=== PATIENT | male | born 1940 | race Caucasian/White ===

== ENCOUNTER 2023-06-15 16:03 | Outpatient (CLI) | payer MEDICARE, SELFPAY | END 2023-06-15 16:04 | disposition home or self-care (01) | PROVIDERS: PCP Family Medicine; Visit Provider Family Medicine | DX: Z00.00 Encounter for general adult medical examination without abnormal findings (principal); I10 Essential (primary) hypertension; I50.9 Heart failure, unspecified; E87.6 Hypokalemia; D64.9 Anemia, unspecified | CPT/HCPCS: 80076; 82607; 82652; 83735; 83880; 84100 ==

== ENCOUNTER 2023-07-19 15:37 | Outpatient (CLI) | payer MEDICARE, SELFPAY ==
--- NOTE | 2023-07-23 16:40 | ONC.NURNOTE ---
Orders received this afternoon from Dr Boykin for 1 unit of blood adjusto writer operator contacted patient and spoke with daughter Jess Munoz states that due to her work schedule she is not able to transport her father in to clinic until 3 pm option given to have type and cross match day before, may come in after 3pm for lab draw daughter expressed dissatisfaction with multiple trips in to hospital and repeats that she does not have the availability to stay with him during a multiple hour visit, Dr Boykin was advised of daughters work constraints and informed this adjusto writer operator to hold off on scheduling this transfusion and Jess was informed that Dr Boykin's team will be in touch with her father next week and offer some other options to manage his anemia if patient and daughter do decide to go ahead with the blood transfusion, Dr Boykin said to set up per their availability in the next week or two.
== END 2023-07-19 15:38 | disposition home or self-care (01) ==
PROVIDERS: PCP Family Medicine; Visit Provider Family Medicine
DX: I50.9 Heart failure, unspecified (principal); D64.9 Anemia, unspecified; I10 Essential (primary) hypertension; E55.9 Vitamin D deficiency, unspecified
CPT/HCPCS: 82728; 82747; 83540; 83615; 83880; 85045

== ENCOUNTER 2023-07-27 07:59 | Outpatient (RCR) | payer MEDICARE, SELFPAY ==
[2023-07-27 08:43] VITALS: BP 94/61; PULSE 73; RESP 22; TEMP 36.6; O2SAT 97
[2023-07-27] MEDS: FUROSEMIDE 20 MG TABLET PO (09:48)
[2023-07-27 10:05] VITALS: BP 105/63; RESP 14; TEMP 36.5
[2023-07-27 10:23] VITALS: BP 99/62; PULSE 69; RESP 14; TEMP 36.4; O2SAT 100
[2023-07-27] MEDS: SODIUM CHLORIDE 0.9 % (FLUSH) 10 ML SYRINGE IVF (10:30)
[2023-07-27] MEDS: 0.9 % SODIUM CHLORIDE 250 ml IV (10:30)
[2023-07-27 11:08] VITALS: BP 92/49; PULSE 69; RESP 14; TEMP 36.4; O2SAT 100
[2023-07-27 12:08] VITALS: BP 112/72; PULSE 70; RESP 14; TEMP 36.4; O2SAT 100
[2023-07-27 13:19] VITALS: BP 113/62; PULSE 70; RESP 22; TEMP 36.6; O2SAT 97
== END 2024-01-23 23:59 | disposition home or self-care (01) ==
LOC: CCIC 07:59
PROVIDERS: PCP Family Medicine; Referring Provider Family Medicine; Visit Provider Clinical Nurse Specialist
DX: D64.9 Anemia, unspecified (principal); J44.9 Chronic obstructive pulmonary disease, unspecified; I50.9 Heart failure, unspecified
CPT/HCPCS: 36415; 36430; 86850; 86900; 86901; 86922; A9270; J7050; P9016

== ENCOUNTER 2023-08-16 16:32 | Outpatient (CLI) | payer MEDICARE, SELFPAY | END 2023-08-16 16:33 | disposition home or self-care (01) | LOC: LKVREF 16:33 | PROVIDERS: PCP Family Medicine; Visit Provider Family Medicine | DX: I50.9 Heart failure, unspecified (principal) | CPT/HCPCS: 83880 ==

== ENCOUNTER 2023-09-13 16:41 | Outpatient (CLI) | payer MEDICARE, SELFPAY | END 2023-09-13 16:42 | disposition home or self-care (01) | PROVIDERS: PCP Family Medicine; Visit Provider Family Medicine | DX: I10 Essential (primary) hypertension (principal); D64.9 Anemia, unspecified; E87.6 Hypokalemia; E55.9 Vitamin D deficiency, unspecified; I50.9 Heart failure, unspecified; J43.9 Emphysema, unspecified | CPT/HCPCS: 80048; 82728; 83540; 83550; 83880; 85045 ==

== ENCOUNTER 2023-09-21 11:03 | Emergency (ER) | payer MEDICARE, SELFPAY ==
[2023-09-21 11:43] VITALS: BP 95/54; PULSE 80; RESP 20; TEMP 36.7; O2SAT 87
--- NOTE | 2023-09-21 11:52 | ED.BACK ---
HPI - Back Pain/Injury General Time Seen by Provider: 12:00 <Christina Joyce Filed: 09/21/23 16:41> Date Seen: 09/21/23 <Christina Joyce Filed: 09/21/23 16:41> Chief Complaint: Back Injury/Pain <Christina Joyce Filed: 09/21/23 16:41> Stated Complaint: Fell yesterday, back pain, low hemoglobin <Christina Joyce Filed: 09/21/23 16:41> Time Seen by Provider: 09/21/23 11:53 <Christina Joyce Filed: 09/21/23 16:41> Source: patient <Christina Joyce Filed: 09/21/23 16:41> Mode of arrival: wheelchair <Christina Joyce Filed: 09/21/23 16:41> Limitations: no limitations <Christina Joyce Filed: 09/21/23 16:41> History of Present Illness HPI Narrative: Patient presents after a fall onto his mid back last evening. Patient is unsure, but believes he slipped or tripped. He did hit his head, but there was no LOC. Denies any headaches or vision changes. Daughter is concerned that the patient may have low hemoglobin, as his levels have been low in the past. Daughter states the patient has been fatigued, losing weight, and has been sleeping more than normal. He also complains of lightheadedness when attempting to walk, so he has been using a wheelchair to get around. Today, patient complains of right-sided upper abdominal pain and mid back pain. The pain has been present since last night and he has not taken anything for the pain. Denies any urinary changes, hematuria, hematochezia, or hematemesis. Of note, patient received a blood transfusion a few months ago. Patient has a history of CHF and stage IV COPD and is on 2L oxygen at baseline with chronic shortness of breath. He lives with his daughter. No tobacco or alcohol use in years. <Christina Joyce Filed: 09/21/23 16:41> Related Data Home Medications: Home Medications Medication Instructions Recorded Confirmed arformoterol 15 mcg/2 mL solution inhalation 06/15/23 09/13/23 for nebulization budesonide 0.25 mg/2 mL suspension 0.25 mg inhalation 06/15/23 09/13/23 for nebulization calcium carbonate 600 mg calcium 750 mg PO TID 06/15/23 09/13/23 (1,500 mg) tablet carboxymethylcellulose sodium ophthalmic (eye) 06/15/23 09/13/23 [Refresh Tears] dorzolamide 2 %-timolol 0.5 % (PF) 1 drp ophthalmic (eye) QAM 06/15/23 09/13/23 eye drops formoterol fumarate 20 mcg/2 mL inhalation 06/15/23 09/13/23 solution for nebulization ipratropium 0.5 mg-albuterol 3 mg ml inhalation 06/15/23 09/13/23 (2.5 mg base)/3 mL nebulization soln latanoprost 0.005 % eye drops 1 drp ophthalmic (eye) QPM 06/15/23 09/13/23 guaifenesin 1,200 mg tablet, 1,200 mg PO BID 06/16/23 09/13/23 extended release 12 hr (Mucinex) vit C 226 mg-vit E 90 mg-copper cap PO BID 06/16/23 09/13/23 0.8 mg-zinc oxide-lutein 5 mg capsule (PreserVision Lutein) potassium chloride 20 mEq 20 meq PO DAILY 09/13/23 09/13/23 tablet,extended release Previous Rx's Medication Instructions Recorded cholecalciferol (vitamin D3) 75 150 mcg (2 x 75 mcg (3,000 unit)) 07/19/23 mcg (3,000 unit) tablet PO QDAY #180 tabs iron,carbonyl 65 mg-vitamin C 125 1 tab PO BID #120 tabs 07/19/23 mg tablet,delayed release (Vitron-C) bisacodyl 10 mg rectal suppository 10 mg [place] QDAY PRN constipation #12 08/16/23 (Dulcolax (bisacodyl)) ea furosemide 20 mg tablet 20 mg PO QAM #90 tabs 08/16/23 tamsulosin 0.4 mg capsule 0.4 mg PO DAILY #90 caps 08/16/23 metoprolol succinate 25 mg 25 mg PO QDAY #90 tabs 08/17/23 tablet,extended release 24 hr <Christina Freed - Last Filed: 09/21/23 16:41> Allergies/Adverse Reactions: Allergies Allergy/AdvReac Type Severity Reaction Status Date / Time finasteride Allergy Severe Confusion Verified 09/13/23 16:09 <[facility] Filed: 09/21/23 16:41> Review of Systems Status of ROS: Reports: 10 or more systems reviewed and unremarkable except as noted in History and below <Christina Gall Filed: 09/21/23 16:41> Const: Reports: change in weight (decreasing) and fatigue; Denies: fever, chills or night sweats <Christina [employer] Filed: 09/21/23 16:41> Eyes: Denies: change in vision or blurry vision <Christina [employer] Filed: 09/21/23 16:41> ENMT: Denies: neck pain <Christina [employer] Filed: 09/21/23 16:41> Cardio: Reports: lightheadedness, shortness of breath with exertion and shortness of breath when lying down; Denies: chest pain, palpitations, edema or swelling of feet/ankles <Christina Gall Filed: 09/21/23 16:41> Resp: Reports: shortness of breath and wheezing; Denies: cough or pain on inspiration <Christina [employer] Filed: 09/21/23 16:41> GI: Reports: abdominal pain (RUQ); Denies: nausea, vomiting, diarrhea, constipation, painful bowel movements, change in stool character or blood in stool <Christina [employer] Filed: 09/21/23 16:41> : Denies: painful urination, urinary frequency, urinary urgency or blood in urine <Christina [employer] Filed: 09/21/23 16:41> Musculo: Reports: back pain (B/L mid bp) and muscle weakness; Denies: neck pain, extremity pain, joint pain, limited range of motion or muscle cramps <Christina [employer] Filed: 09/21/23 16:41> Integ/Breast: Denies: rash <Christina [employer] Filed: 09/21/23 16:41> Neuro: Reports: behavioral changes (per daughter pt has been delayed with his thoughts) and difficulty communicating thoughts; Denies: headache, numbness in extremities, weakness in extremities, dizziness or confusion <Christina Lour[facility] - Last Filed: 09/21/23 16:41> Endo: Reports: fatigue <Christina Freed - Last Filed: 09/21/23 16:41> Allergy/Immuno: Reports: wheezing <Christina Freed - Last Filed: 09/21/23 16:41> PFSH PFSH Medical History: Medical History BPH associated with nocturia ?N40.1 - Benign prostatic hyperplasia with lower urinary tract symptoms (ICD-10) ?R35.1 - Nocturia (ICD-10) Anemia ?D64.9 - Anemia, unspecified (ICD-10) Hypokalemia ?E87.6 - Hypokalemia (ICD-10) Vitamin D deficiency ?E55.9 - Vitamin D deficiency, unspecified (ICD-10) HTN (hypertension) ?I10 - Essential (primary) hypertension (ICD-10) COPD (chronic obstructive pulmonary disease) with emphysema ?J43.9 - Emphysema, unspecified (ICD-10) Lower extremity edema ?R60.0 - Localized edema (ICD-10) CHF (congestive heart failure) ?I50.9 - Heart failure, unspecified (ICD-10) <Christina Freed - Last Filed: 09/21/23 16:41> Social History: Social History Little interest or pleasure in doing things: not at all Feeling down, depressed, or hopeless: not at all <Christina Lourdes - Last Filed: 09/21/23 16:41> Exam Const: Vital Signs, click to edit/add: Vital Signs - 24 hr 09/21/23 11:43 09/21/23 17:04 09/21/23 17:21 Temperature 98.0 F 97.1 F L 97.4 F L Pulse Rate 87 85 Pulse Rate [Right Pulse Oximeter] 80 Respiratory Rate 20 18 18 Blood Pressure 111/62 116/54 L Blood Pressure [Ri ght Upper Arm] 95/54 L Pulse Oximetry 87 L 98 Oxygen Delivery Me thod Nasal Cannula 09/21/23 17:22 Temperature 97.9 F Pulse Rate 89 Pulse Rate [Right Pulse Oximeter] Respiratory Rate 18 Blood Pressure 114/50 L Blood Pressure [Ri ght Upper Arm] Pulse Oximetry 95 Oxygen Delivery Me thod <Christina Filed: 09/21/23 16:41> Vital Signs, click to edit/add: Vital Signs - 24 hr 09/21/23 11:43 09/21/23 17:04 09/21/23 17:21 Temperature 98.0 F 97.1 F L 97.4 F L Pulse Rate 87 85 Pulse Rate [Right Pulse Oximeter] 80 Respiratory Rate 20 18 18 Blood Pressure 111/62 116/54 L Blood Pressure [Ri ght Upper Arm] 95/54 L Pulse Oximetry 87 L 98 Oxygen Delivery Me thod Nasal Cannula 09/21/23 17:22 Temperature 97.9 F Pulse Rate 89 Pulse Rate [Right Pulse Oximeter] Respiratory Rate 18 Blood Pressure 114/50 L Blood Pressure [Ri ght Upper Arm] Pulse Oximetry 95 Oxygen Delivery Me thod <Andres Johnston DO - Last Filed: 09/21/23 20:20> Documenting provider has reviewed patient's vital signs: yes <Christina Filed: 09/21/23 16:41> Common normals: no apparent distress, oriented x3 and alert <Christina Filed: 09/21/23 16:41> General appearance: cooperative, lethargic and frail appearing <Christina Filed: 09/21/23 16:41> Orientation/consciousness: Yes lethargic <Christina Filed: 09/21/23 16:41> HENMT: Common normals: normocephalic, hearing grossly normal bilaterally, external ears normal, EAC's normal, external nose normal, nasal mucous membranes and turbinates normal, moist oral mucous membranes and oropharynx normal <Christina Filed: 09/21/23 16:41> Head and scalp: normal to inspection and normocephalic <Christina Filed: 09/21/23 16:41> Nose: external nose normal and nasal mucous membranes and turbinates normal <Christina Filed: 09/21/23 16:41> External ear: external ears normal <Christina Filed: 09/21/23 16:41> External auditory canal: EAC's normal <[facility] Filed: 09/21/23 16:41> Eye: Common normals: PERRL, EOMs intact bilaterally and conjunctivae normal <[facility] Filed: 09/21/23 16:41> Conjunctiva: conjunctiva(e) normal <[facility] Filed: 09/21/23 16:41> Pupil: PERRL <[facility] Filed: 09/21/23 16:41> Neck & C-Spine: Common normals: full ROM, no lymphadenopathy, supple, no meningeal signs, no JVD, thyroid normal and no carotid bruits <[facility] Filed: 09/21/23 16:41> Thyroid: thyroid normal <[facility] Filed: 09/21/23 16:41> Chest: Common normals: inspection of chest normal, palpation of chest normal, inspection of breasts normal and palpation of breasts normal <[facility] Filed: 09/21/23 16:41> Resp: Common normals: normal respiratory effort, no retractions, no use of accessory muscles, clear to auscultation bilaterally and percussion normal <[facility] Filed: 09/21/23 16:41> Effort & inspection: able to speak in complete sentences and symmetric chest movement <[facility] Filed: 09/21/23 16:41> Auscultation: clear to auscultation bilaterally and diminished lung sounds <[facility] Filed: 09/21/23 16:41> Percussion: percussion normal <[facility] Filed: 09/21/23 16:41> Cardio: Common normals: no JVD, regular rate, regular rhythm, S1 normal heart sound, S2 normal heart sound, no gallops, no clicks, no murmurs, no rub and peripheral pulses 2+ throughout <[facility] Filed: 09/21/23 16:41> Rate: regular rate <[facility] Filed: 09/21/23 16:41> Rhythm: regular rhythm <[facility] Filed: 09/21/23 16:41> Heart sounds: S1 normal and S2 normal <Christina - Last Filed: 09/21/23 16:41> Peripheral pulses: pulses 2+ throughout <Christina - Last Filed: 09/21/23 16:41> GI: Common normals: Normal to inspection, nondistended, normoactive bowel sounds present, soft to palpation, non-tender, no hepatosplenomegaly and no masses <Christina - Last Filed: 09/21/23 16:41> Palpation: soft and no hepatosplenomegaly <Christina - Last Filed: 09/21/23 16:41> : Common normals: no CVA tenderness <Christina - Last Filed: 09/21/23 16:41> Bladder/kidney exam: no CVA tenderness <Christina - Filed: 09/21/23 16:41> Back & Pelvis: Common normals: no CVA tenderness <Christina - Filed: 09/21/23 16:41> Thoracic spine/upper back: ROM limited, mass present (large mass at mid back) and kyphosis present; no thoracic spinal tenderness, no paraspinal muscle tenderness, no paraspinal muscle spasm and no bony scapula findings <Christina - Filed: 09/21/23 16:41> Lumbar spine/lower back: ROM limited; no lumbar spinal tenderness, no paraspinal muscle tenderness and no paraspinal muscle spasm <Christina - Filed: 09/21/23 16:41> Pelvis: no pain with lateral compression <Christina - Last Filed: 09/21/23 16:41> Sacrum: no erythema, no swelling and no tenderness <Christina - Last Filed: 09/21/23 16:41> Extremity: Common normals: normal to inspection, full ROM, normal capillary refill, no calf tenderness and no pedal edema <Christina - Last Filed: 09/21/23 16:41> Neuro: Common normals: oriented x3 <Christina - Last Filed: 09/21/23 16:41> Sensorium/orientation: alert and lethargic <Christina - Last Filed: 09/21/23 16:41> Meningeal signs: no meningeal signs <Christina Lourdes - Last Filed: 09/21/23 16:41> Psych: Common normals: mental status grossly normal, thought process normal, cooperative, affect normal and activity/motor behavior normal <Christina Freed - Last Filed: 09/21/23 16:41> Speech: slow <Christina Freed Last Filed: 09/21/23 16:41> Thought process: normal thought process <Christina Freed - Filed: 09/21/23 16:41> Skin: Common normals: no rashes or lesions noted <Christina Freed - Filed: 09/21/23 16:41> General skin exam: no rashes or lesions noted <Christina Freed - Filed: 09/21/23 16:41> Course Reevaluation(s) Time of Reevaluation #1: 12:10 <Christina Freed - Filed: 09/21/23 16:41> Reevaluation #1: Patient seen and evaluated by IDALIA Mendenhall <Christina Freed Filed: 09/21/23 16:41> Time of Reevaluation #2: 12:30 <Christina Lourdes - Filed: 09/21/23 16:41> Reevaluation #2: Dr. Johnston was present for history and physical exam performed by student. Family and patient updated on plan. Patient placed on 2L of oxygen and given Neb treatment for his chronic shortness of breath. <Christina Lourdes Filed: 09/21/23 16:41> Time of Reevaluation #3: 15:41 <Christina Lourdes Filed: 09/21/23 16:41> Reevaluation #3: Dr. Johnston updated daughter and patient on lab and imaging results. Discussed the possibility of admission. <Christina Lourdes Last Filed: 09/21/23 16:41> Vital Signs Vital signs: Initial Vital Signs Temperature 98.0 F 09/21/23 11:43 Temperature Source Temporal Artery Scan 09/21/23 11:43 Pulse Rate 80 09/21/23 11:43 Respiratory Rate 20 09/21/23 11:43 Blood Pressure 95/54 L 09/21/23 11:43 Blood Pressure Mean 67 L 09/21/23 11:43 Blood Pressure Position Sitting 09/21/23 11:43 Pulse Oximetry 87 L 09/21/23 11:43 Oxygen Delivery Method Nasal Cannula 09/21/23 11:43 Vital Signs Temperature 98.0 F 09/21/23 11:43 Pulse Rate 80 09/21/23 11:43 Respiratory Rate 20 09/21/23 11:43 Blood Pressure 95/54 L 09/21/23 11:43 Pulse Oximetry 87 L 09/21/23 11:43 Oxygen Delivery Method Nasal Cannula 09/21/23 11:43 Temperature 97.9 F 09/21/23 17:22 Pulse Rate 89 09/21/23 17:22 Respiratory Rate 18 09/21/23 17:22 Blood Pressure 114/50 L 09/21/23 17:22 Pulse Oximetry 95 09/21/23 17:22 Oxygen Delivery Method Nasal Cannula 09/21/23 11:43 <Christina Freed - Last Filed: 09/21/23 16:41> Initial Vital Signs Temperature 98.0 F 09/21/23 11:43 Temperature Source Temporal Artery Scan 09/21/23 11:43 Pulse Rate 80 09/21/23 11:43 Respiratory Rate 20 09/21/23 11:43 Blood Pressure 95/54 L 09/21/23 11:43 Blood Pressure Mean 67 L 09/21/23 11:43 Blood Pressure Position Sitting 09/21/23 11:43 Pulse Oximetry 87 L 09/21/23 11:43 Oxygen Delivery Method Nasal Cannula 09/21/23 11:43 Vital Signs Temperature 98.0 F 09/21/23 11:43 Pulse Rate 80 09/21/23 11:43 Respiratory Rate 20 09/21/23 11:43 Blood Pressure 95/54 L 09/21/23 11:43 Pulse Oximetry 87 L 09/21/23 11:43 Oxygen Delivery Method Nasal Cannula 09/21/23 11:43 Temperature 97.9 F 09/21/23 17:22 Pulse Rate 89 09/21/23 17:22 Respiratory Rate 18 09/21/23 17:22 Blood Pressure 114/50 L 09/21/23 17:22 Pulse Oximetry 95 09/21/23 17:22 Oxygen Delivery Method Nasal Cannula 09/21/23 11:43 <Andres Johnston DO - Last Filed: 09/21/23 20:20> MDM - Back Pain/Injury MDM Narrative Medical decision making narrative: Patient is an 83-year-old male with a pertinent medical history of stage IV COPD who presents to the ED after a fall onto his mid back last evening. Patient is unsure why/how he fell, admits to hitting his head, but denies any LOC. No headaches or vision changes at this time. Patient has history of low hemoglobin at baseline, but has been feeling lightheaded and experiencing unexpected weight loss over the past few days. Today, patient complains of mid back pain and right upper quadrant abdominal pain. On exam, patient is afebrile and hypotensive with a blood pressure of 95/54. He is lethargic and slow to answering questions. Patient is on 2L oxygen at baseline and has an O2 sat of 87. Patient has diminished lung sounds, but is in no acute distress. He has limited thoracic and lumbar ROM at baseline. He is not significantly tender on cervical, thoracic, or lumbar exam. Physical exam is otherwise unremarkable. CT abdomen, cervical spine, head, and chest X-ray ordered to rule out any trauma, fractures, or pulmonary diseases/infections, AAA or aortic dissection. Troponin, Mg, Pro BNP, and EKG ordered to assess any underlying cardiac events. CBC, UA, CMP ordered to rule out anemia, electrolyte abnormalities, or underlying infectious causes. Covid/Flu ordered to assess for viral infections. Patient placed on 2L of oxygen at this time and neb ordered to alleviate his elevated shortness of breath. Patient declined Covid/flu swab and nebulizer treatment. CBC is remarkable for elevated WBC, elevated neutrophils, and low lymphocytes. Patients Hgb decreased from 8.6 to 7.9 (today) over the span of 5 days and is critically low with low RBCs and Hct and is symptomatic with fatigue, lightheadedness, and weakness. Patient would likely benefit from a blood transfusion, subsequent a blood type ordered and patent is A positive. CBC shows low sodium, chloride, and elevated CO2 likely due to the patients stage IV COPD. UA is unremarkable with no nitrites or leukocyte esterase, no underlying urinary tract infection. Pro BNP elevated at 2440 likely due to his history of CHF. Troponin negative. Chest X-ray unremarkable for pneumonia or other pulmonary disease, no clear signs of infection. Cervical spine CT unremarkable for fracture. CT head unremarkable with no intracranial bleeding. CT abdomen shows AAA measuring 4.5 x 5.1 cm that is not leaking; therefore, low suspicion for aortic dissection. 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 Nurse mentioned the patient's stools looked black and tarry, it is likely his low hemoglobin is due to an upper GI bleed or from his carcinoma. Subsequent CT thoracic spine without contrast was ordered to better assess an acute traumatic injury or fracture to T10-T12 vertebrae. No fracture found on CT, but there is mention of age-related degenerative changes at T7 and T8 and kyphosis. Due to patient's stage IV COPD, chronic nasal cannula, and CHF, he is not a good candidate for surgery at this time. <Christina Freed - Last Filed: 09/21/23 16:41> Patient is an 83-year-old male with a pertinent medical history of stage IV COPD who presents to the ED after a fall onto his mid back last evening. Patient is unsure why/how he fell, admits to hitting his head, but denies any LOC. No headaches or vision changes at this time. Patient has history of low hemoglobin at baseline, but has been feeling lightheaded and experiencing unexpected weight loss over the past few days. Today, patient complains of mid back pain and right upper quadrant abdominal pain. On exam, patient is afebrile and hypotensive with a blood pressure of 95/54. He is lethargic and slow to answering questions. Patient is on 2L oxygen at baseline and has an O2 sat of 87. Patient has diminished lung sounds, but is in no acute distress. He has limited thoracic and lumbar ROM at baseline. He is not significantly tender on cervical, thoracic, or lumbar exam. Physical exam is otherwise unremarkable. CT abdomen, cervical spine, head, and chest X-ray ordered to rule out any trauma, fractures, or pulmonary diseases/infections, AAA or aortic dissection. Troponin, Mg, Pro BNP, and EKG ordered to assess any underlying cardiac events. CBC, UA, CMP ordered to rule out anemia, electrolyte abnormalities, or underlying infectious causes. Covid/Flu ordered to assess for viral infections. Patient placed on 2L of oxygen at this time and neb ordered to alleviate his elevated shortness of breath. Patient declined Covid/flu swab and nebulizer treatment. CBC is remarkable for elevated WBC, elevated neutrophils, and low lymphocytes. Patients Hgb decreased from 8.6 to 7.9 (today) over the span of 5 days and is critically low with low RBCs and Hct and is symptomatic with fatigue, lightheadedness, and weakness. Patient would likely benefit from a blood transfusion, subsequent a blood type ordered and patent is A positive. CBC shows low sodium, chloride, and elevated CO2 likely due to the patients stage IV COPD. UA is unremarkable with no nitrites or leukocyte esterase, no underlying urinary tract infection. Pro BNP elevated at 2440 likely due to his history of CHF. Troponin negative. Chest X-ray unremarkable for pneumonia or other pulmonary disease, no clear signs of infection. Cervical spine CT unremarkable for fracture. CT head unremarkable with no intracranial bleeding. CT abdomen shows AAA measuring 4.5 x 5.1 cm that is not leaking; therefore, low suspicion for aortic dissection. 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 Nurse mentioned the patient's stools looked black and tarry, it is likely his low hemoglobin is due to a GI bleed or from his carcinoma. Subsequent CT thoracic spine without contrast was ordered to better assess an acute traumatic injury or fracture to T10-T12 vertebrae. No fracture found on CT, but there is mention of age-related degenerative changes at T7 and T8 and kyphosis. Due to patient's stage IV COPD, chronic nasal cannula, and CHF, he is not a good candidate for surgery at this time. I spoke to Dr. Mendoza and Dr. Rowe about this patient. Both of them think he is a poor candidate for any surgery or procedures to better diagnose his likely GI bleeding. Dr. Rowe did mention hospice planning with this patient. I spoke to him and his daughter and mother consider it they believe he he could be a candid for surgery using a epidural. This would be very high risk procedure especially considering his age according to Dr. Mendoza. He is otherwise and has baseline right now and has been given 1 unit of blood. I had this conversation again about hospice and they would like to be discharged as they did not want to be admitted just for hospice planning. They will follow-up with Colorectal surgery outpatient for this carcinoma. Social service consult was put in for possible or patient hospice planning. <Andres Johnston, - Last Filed: 09/21/23 20:20> Differential Diagnosis Differential diagnosis: Likely lumbar radiculopathy, sciatica, strain of lumbar region, renal colic, pyelonephritis, thoracic back pain and AAA <Christina Freed - Last Filed: 09/21/23 16:41> Medical Records Attestation: I reviewed the patient's medical records. <Christina Freed - Last Filed: 09/21/23 16:41> Lab Data Attestation: I reviewed the patient's lab results. <Christina Freed - Last Filed: 09/21/23 16:41> Labs: Lab Results 09/21/23 09/21/23 09/21/23 Range/Units 12:20 12:53 14:40 WBC 15.05 H (4.50-11.00) K/uL RBC 2.82 L (4.30-5.90) m/uL Hgb 7.9 L* (13.5-17.5) gm/dL Hct 27.4 L (37.0-53.0) % MCV 97 (80-100) fL MCH 28 (26-34) pg MCHC 29 L (32-36) gm/dL RDW Coeff of Karlee 14.3 (11.5-15.5) % Plt Count 172 (140-440) K/uL Neut % (Auto) 78.6 H (42.0-72.0) % Lymph % (Auto) 8.8 L (20-44) % [place] % (Auto) 7.5 (0.0-11.0) % Eos % (Auto) 4.3 (0.0-7.0) % Baso % (Auto) 0.3 (0.0-3.0) % Neut # (Auto) 11.80 H (1.7-7.0) K/uL Lymph # (Auto) 1.30 (0.90-2.90) K/uL [place] # (Auto) 1.10 H (0.00-0.90) K/UL Eos # (Auto) 0.60 H (0.00-0.50) K/uL Baso # (Auto) 0.00 (0.00-0.30) K/uL Abs Immat Gran (auto) 0.10 (0.00-0.30) K/uL Imm/Tot Granulo (auto) 0.5 % Diff Slide Review Acceptable Review (Acceptable) Sodium 130 L (135-149) mmol/L Potassium 4.5 (3.6-5.1) mmol/L Chloride 90 L (96-114) mmol/L Carbon Dioxide 36 H (20-32) mmol/L Anion Gap 4 L (7-15) mEq/L BUN 22 (7-30) mg/dL Creatinine 1.3 (0.5-1.5) mg/dL Estimated GFR 55 ml/min Glucose 113 (60-115) mg/dL Calcium 9.3 (8.4-10.6) mg/dL Magnesium 2.1 (1.5-2.6) mg/dL Total Bilirubin 0.5 (0.1-1.5) mg/dL AST 12 (12-35) U/L ALT 11 (4-50) U/L Alkaline Phosphatase 62 (40-150) U/L Troponin I < 0.01 L (0.01-0.04) ng/mL NT-Pro-B Natriuret Pep 2440 pg/mL Total Protein 5.9 L (6.0-8.3) g/dL Albumin 3.0 L (3.3-5.0) g/dL Urine Color Yellow (Yellow) Urine Appearance Clear (Clear) Urine pH 5.0 (5.0-8.5) Ur Specific [place] 1.010 (1.000-1.030) Urine Protein Negative (Negative) Urine Glucose (UA) Negative (Negative) Urine Ketones Negative (Negative) Urine Blood Negative (Negative) Urine Nitrite Negative (Negative) Urine Bilirubin Negative (Negative) Urine Urobilinogen 0.2 (0.2-1.0) Ur Leukocyte Esterase Negative (Negative) Urine RBC 0-2 (0-2) Urine WBC 0-2 (0-5) Ur Squamous Epith Cells None (None-Few) Urine Bacteria None (None) Lab Acknowledgement Test Added Blood Type Antibody Screen Crossmatch (AHG) 09/21/23 Range/Units 14:45 WBC (4.50-11.00) K/uL RBC (4.30-5.90) m/uL Hgb (13.5-17.5) gm/dL Hct (37.0-53.0) % MCV (80-100) fL MCH (26-34) pg MCHC (32-36) gm/dL RDW Coeff of Karlee (11.5-15.5) % Plt Count (140-440) K/uL Neut % (Auto) (42.0-72.0) % Lymph % (Auto) (20-44) % [place] % (Auto) (0.0-11.0) % Eos % (Auto) (0.0-7.0) % Baso % (Auto) (0.0-3.0) % Neut # (Auto) (1.7-7.0) K/uL Lymph # (Auto) (0.90-2.90) K/uL [place] # (Auto) (0.00-0.90) K/UL Eos # (Auto) (0.00-0.50) K/uL Baso # (Auto) (0.00-0.30) K/uL Abs Immat Gran (auto) (0.00-0.30) K/uL Imm/Tot Granulo (auto) % Diff Slide Review (Acceptable) Sodium (135-149) mmol/L Potassium (3.6-5.1) mmol/L Chloride (96-114) mmol/L Carbon Dioxide (20-32) mmol/L Anion Gap (7-15) mEq/L BUN (7-30) mg/dL Creatinine (0.5-1.5) mg/dL Estimated GFR ml/min Glucose (60-115) mg/dL Calcium (8.4-10.6) mg/dL Magnesium (1.5-2.6) mg/dL Total Bilirubin (0.1-1.5) mg/dL AST (12-35) U/L ALT (4-50) U/L Alkaline Phosphatase (40-150) U/L Troponin I (0.01-0.04) ng/mL NT-Pro-B Natriuret Pep pg/mL Total Protein (6.0-8.3) g/dL Albumin (3.3-5.0) g/dL Urine Color (Yellow) Urine Appearance (Clear) Urine pH (5.0-8.5) Ur Specific [place] (1.000-1.030) Urine Protein (Negative) Urine Glucose (UA) (Negative) Urine Ketones (Negative) Urine Blood (Negative) Urine Nitrite (Negative) Urine Bilirubin (Negative) Urine Urobilinogen (0.2-1.0) Ur Leukocyte Esterase (Negative) Urine RBC (0-2) Urine WBC (0-5) Ur Squamous Epith Cells (None-Few) Urine Bacteria (None) Lab Acknowledgement Blood Type A Positive Antibody Screen NEGATIVE Crossmatch (AHG) See Detail <Christina Freed - Last Filed: 09/21/23 16:41> Lab Results 09/21/23 09/21/23 09/21/23 Range/Units 12:20 12:53 14:40 WBC 15.05 H (4.50-11.00) K/uL RBC 2.82 L (4.30-5.90) m/uL Hgb 7.9 L* (13.5-17.5) gm/dL Hct 27.4 L (37.0-53.0) % MCV 97 (80-100) fL MCH 28 (26-34) pg MCHC 29 L (32-36) gm/dL RDW Coeff of Karlee 14.3 (11.5-15.5) % Plt Count 172 (140-440) K/uL Neut % (Auto) 78.6 H (42.0-72.0) % Lymph % (Auto) 8.8 L (20-44) % [place] % (Auto) 7.5 (0.0-11.0) % Eos % (Auto) 4.3 (0.0-7.0) % Baso % (Auto) 0.3 (0.0-3.0) % Neut # (Auto) 11.80 H (1.7-7.0) K/uL Lymph # (Auto) 1.30 (0.90-2.90) K/uL [place] # (Auto) 1.10 H (0.00-0.90) K/UL Eos # (Auto) 0.60 H (0.00-0.50) K/uL Baso # (Auto) 0.00 (0.00-0.30) K/uL Abs Immat Gran (auto) 0.10 (0.00-0.30) K/uL Imm/Tot Granulo (auto) 0.5 % Diff Slide Review Acceptable Review (Acceptable) Sodium 130 L (135-149) mmol/L Potassium 4.5 (3.6-5.1) mmol/L Chloride 90 L (96-114) mmol/L Carbon Dioxide 36 H (20-32) mmol/L Anion Gap 4 L (7-15) mEq/L BUN 22 (7-30) mg/dL Creatinine 1.3 (0.5-1.5) mg/dL Estimated GFR 55 ml/min Glucose 113 (60-115) mg/dL Calcium 9.3 (8.4-10.6) mg/dL Magnesium 2.1 (1.5-2.6) mg/dL Total Bilirubin 0.5 (0.1-1.5) mg/dL AST 12 (12-35) U/L ALT 11 (4-50) U/L Alkaline Phosphatase 62 (40-150) U/L Troponin I < 0.01 L (0.01-0.04) ng/mL NT-Pro-B Natriuret Pep 2440 pg/mL Total Protein 5.9 L (6.0-8.3) g/dL Albumin 3.0 L (3.3-5.0) g/dL Urine Color Yellow (Yellow) Urine Appearance Clear (Clear) Urine pH 5.0 (5.0-8.5) Ur Specific [place] 1.010 (1.000-1.030) Urine Protein Negative (Negative) Urine Glucose (UA) Negative (Negative) Urine Ketones Negative (Negative) Urine Blood Negative (Negative) Urine Nitrite Negative (Negative) Urine Bilirubin Negative (Negative) Urine Urobilinogen 0.2 (0.2-1.0) Ur Leukocyte Esterase Negative (Negative) Urine RBC 0-2 (0-2) Urine WBC 0-2 (0-5) Ur Squamous Epith Cells None (None-Few) Urine Bacteria None (None) Lab Acknowledgement Test Added Blood Type Antibody Screen Crossmatch (AHG) 09/21/23 Range/Units 14:45 WBC (4.50-11.00) K/uL RBC (4.30-5.90) m/uL Hgb (13.5-17.5) gm/dL Hct (37.0-53.0) % MCV (80-100) fL MCH (26-34) pg MCHC (32-36) gm/dL RDW Coeff of Karlee (11.5-15.5) % Plt Count (140-440) K/uL Neut % (Auto) (42.0-72.0) % Lymph % (Auto) (20-44) % [place] % (Auto) (0.0-11.0) % Eos % (Auto) (0.0-7.0) % Baso % (Auto) (0.0-3.0) % Neut # (Auto) (1.7-7.0) K/uL Lymph # (Auto) (0.90-2.90) K/uL [place] # (Auto) (0.00-0.90) K/UL Eos # (Auto) (0.00-0.50) K/uL Baso # (Auto) (0.00-0.30) K/uL Abs Immat Gran (auto) (0.00-0.30) K/uL Imm/Tot Granulo (auto) % Diff Slide Review (Acceptable) Sodium (135-149) mmol/L Potassium (3.6-5.1) mmol/L Chloride (96-114) mmol/L Carbon Dioxide (20-32) mmol/L Anion Gap (7-15) mEq/L BUN (7-30) mg/dL Creatinine (0.5-1.5) mg/dL Estimated GFR ml/min Glucose (60-115) mg/dL Calcium (8.4-10.6) mg/dL Magnesium (1.5-2.6) mg/dL Total Bilirubin (0.1-1.5) mg/dL AST (12-35) U/L ALT (4-50) U/L Alkaline Phosphatase (40-150) U/L Troponin I (0.01-0.04) ng/mL NT-Pro-B Natriuret Pep pg/mL Total Protein (6.0-8.3) g/dL Albumin (3.3-5.0) g/dL Urine Color (Yellow) Urine Appearance (Clear) Urine pH (5.0-8.5) Ur Specific [place] (1.000-1.030) Urine Protein (Negative) Urine Glucose (UA) (Negative) Urine Ketones (Negative) Urine Blood (Negative) Urine Nitrite (Negative) Urine Bilirubin (Negative) Urine Urobilinogen (0.2-1.0) Ur Leukocyte Esterase (Negative) Urine RBC (0-2) Urine WBC (0-5) Ur Squamous Epith Cells (None-Few) Urine Bacteria (None) Lab Acknowledgement Blood Type A Positive Antibody Screen NEGATIVE Crossmatch (AHG) See Detail <Andres Johnston DO Filed: 09/21/23 20:20> ECG Data Attestation: I personally reviewed and interpreted this ECG as follows: <Andres Johnston DO Last Filed: 09/21/23 20:20> Interpretation: Normal sinus rhythm with a rate of 76 beats per minute, normal intervals, normal axis, no ST or T-wave abnormalities <Andres Johnston DO Filed: 09/21/23 20:20> Discharge Plan Discharge Clinical Impression: Colonic mass Anemia Qualifiers: Anemia type: unspecified type Qualified Code(s): D64.9 - Anemia, unspecified <Christina Puga Filed: 09/21/23 16:41> Patient Disposition: Home, Self-Care <Christina Puga Filed: 09/21/23 16:41> Condition: Stable <Christina Freed Filed: 09/21/23 16:41> Instructions: Anemia (ED) <Christina Puga Filed: 09/21/23 16:41> Additional Instructions: Follow-up with [facility] [address] [place] [address], [address], [address] [id number] Return to the emergency department for new or worsening symptoms director of community services will call you for possible hospice planning if this is the route he decided to go. <Christina Puga Filed: 09/21/23 16:41> Prescriptions: No Action potassium chloride 20 mEq tablet extended release 20 meq PO DAILY budesonide 0.25 mg/2 mL suspension for nebulization 0.25 mg inhalation arformoterol 15 mcg/2 mL solution for nebulization inhalation calcium carbonate 600 mg calcium (1,500 mg) tablet 750 mg PO TID latanoprost 0.005 % drops 1 drp ophthalmic (eye) QPM dorzolamide-timolol (PF) 2-0.5 % drops 1 drp ophthalmic (eye) QAM carboxymethylcellulose sodium [Refresh Tears] ophthalmic (eye) ipratropium-albuterol 0.5 mg-3 mg(2.5 mg base)/3 mL solution for nebulization inhalation Patient Comments: [NO ORIGINAL SIG] formoterol fumarate 20 mcg/2 mL solution for nebulization inhalation cholecalciferol (vitamin D3) 75 mcg (3,000 unit) tablet 150 mcg PO QDAY Qty: 180 3RF Vitron-C 65 mg iron- 125 mg tablet,delayed release (DR/EC) 1 tab PO BID Qty: 120 1RF bisacodyl [Dulcolax (bisacodyl)] 10 mg suppository 10 mg [place] QDAY PRN (Reason: constipation) Qty: 12 1RF tamsulosin 0.4 mg capsule 0.4 mg PO DAILY Qty: 90 3RF furosemide 20 mg tablet 20 mg PO QAM Qty: 90 0RF PreserVision Lutein 226-90-0.8-5 mg capsule PO BID Mucinex 1,200 mg tablet extended release 12hr 1,200 mg PO BID metoprolol succinate 25 mg tablet extended release 24 hr 25 mg PO QDAY Qty: 90 3RF <Christina Freed - Last Filed: 09/21/23 16:41> Follow Up/Referrals: Ebenezer Boykin MD [Primary Care Provider] - <Christina Freed - Last Filed: 09/21/23 16:41> Stand Alone Forms: MyHealth Info Instructions <Christina Freed - Last Filed: 09/21/23 16:41>
--- NOTE | 2023-09-21 12:26 | CRLHL7_ITS ---
For Patients: As a result of the 21st Century Cures Act, medical imaging exams and procedure reports are released immediately into your electronic medical record. You may view this report before your referring provider. If you have questions, please contact your health care provider. INDICATION: Injury with right upper quadrant and back pain in the T10/T12 area. COMPARISON: None TECHNIQUE: CT examination of the abdomen and pelvis was performed following the uneventful intravenous administration of 71 cc of Isovue 370. Thin section axial images were obtained from the lung bases through the pubic symphysis. Oral contrast was not administered. Please note that all CT scans at this facility use dose modulation, iterative reconstruction, and/or weight-based dosing when appropriate to reduce radiation dose to as low as reasonably achievable. FINDINGS: LUNG BASES: Bibasilar opacities likely due to atelectasis. Trace left effusion.Heart size is normal at the lung bases. There is a small pericardial effusion above that generally seen physiologically. LIVER/BILIARY SYSTEM:The liver is normal in size and configuration. There is no focal mass and there is no intra- or extra hepatic biliary ductal dilatation.The gall bladder appears normal. ADRENALS: Normal KIDNEYS, URETERS and BLADDER:The kidneys appear normal. No visible mass, calculus or hydronephrosis. The ureters and bladder as visualized appear normal. SPLEEN:Normal appearance. PANCREAS: Appears normal. RETROPERITONEUM and MESENTERY: If her sclerotic vascular calcifications. No adenopathy. Mid to distal abdominal aortic aneurysm extending from the infrarenal area to the common iliac arteries. Associated mural thrombus. This measures 4.5 x 5.1 centimeters trans axially and about 7 centimeters in length. There is no indication that this is ulcerated or currently leaking. GASTROINTESTINAL SYSTEM: Unusually large cecal mass. 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 This measures about 8.0 x 5.5 by 8.5 centimeters in its medial lateral, anteroposterior and craniocaudal respective dimensions. This does not appear to be obstructive. Elsewhere, fecal retention and diverticulosis. Prominent lymph nodes adjacent to the mass are likely metastatic PELVIS: There is mild free fluid. Apparent TURP defect.. OSSEOUS STRUCTURES and ABDOMINAL WALL: Demineralization and degenerative change. No visible fracture of the pelvis or lumbar spine. Regarding the history of trauma with pain of the lower thoracic spine, please be aware that the thoracic spine is not visible on this study. Only the lower half of T12 is identified. No lower rib fractures. OTHER: No free fluid or free air. IMPRESSION: 1. No visible acute posttraumatic finding. No visible fracture of the lumbar spine, pelvis or lower ribs. Regarding the history of pain in the T10-T12 area, please be aware that only the bottom half of T12 is visible on this study. Additional imaging as warranted clinically. 2. 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 This is nonobstructive and there is no distant disease identified. There are prominent regional lymph nodes adjacent to the cecum and ascending colon that are likely malignant. A small amount of free fluid is noted in the pelvis likely related to the cecal mass 3. Abdominal aortic aneurysm measuring 4.5 x 5.1 centimeters trans axially and about 7 centimeters in length. There is no indication that this is leaking. 4. There is a small pericardial effusion. This is slightly above that generally seen physiologically. 5. Other nonacute appearing findings as above Please note that all CT scans at this facility use dose modulation, iterative reconstruction, and/or weight-based dosing when appropriate to reduce radiation dose to as low as reasonably achievable. Dictated by Paulie Mckeon MD @ 09/21/2023 2:38:26 PM (Electronically Signed)
--- NOTE | 2023-09-21 12:27 | CRLHL7_ITS ---
For Patients: As a result of the Century Cures Act, medical imaging exams and procedure reports are released immediately into your electronic medical record. You may view this report before your referring provider. If you have questions, please contact your health care provider. INDICATION: Short of breath COMPARISON: Abdomen radiograph 08/16/2023 TECHNIQUE: 1 view chest radiograph. FINDINGS: Lung volumes are good. Minimal bibasilar peripheral reticulation is similar to prior and probably related to remote insult or mild scarring/fibrosis. No focal consolidations. No pulmonary edema. No pleural effusion. No pneumothorax. No pneumomediastinum. Normal cardiomediastinal silhouette. Atherosclerotic vascular calcifications. Bones: Normal for age. IMPRESSION: No acute appearing findings. No pneumonia or edema seen. Dictated by Anel Lawson MD @ 09/21/2023 2:03:45 PM (Electronically Signed)
--- NOTE | 2023-09-21 12:27 | CRLHL7_ITS ---
For Patients: As a result of the Cures Act, medical imaging exams and procedure reports are released immediately into your electronic medical record. You may view this report before your referring provider. If you have questions, please contact your health care provider. INDICATION: Fall. TECHNIQUE: CT cervical spine without contrast. COMPARISON: None. FINDINGS: No acute fracture. Trace retrolisthesis of C2 on C3. Bony mineralization is age appropriate. No prevertebral soft tissue hematoma or swelling. No soft tissue abnormality is identified. Multilevel spondylosis. No pathologically enlarged lymph nodes. Atrophic versus resected thyroid. Likely emphysema within the apices. IMPRESSION: No discrete acute fracture. Please note that all CT scans at this facility use dose modulation, iterative reconstruction, and/or weight-based dosing when appropriate to reduce radiation dose to as low as reasonably achievable. Dictated by Loki Millard MD @ 09/21/2023 2:35:08 PM (Electronically Signed)
--- NOTE | 2023-09-21 12:27 | CRLHL7_ITS ---
For Patients: As a result of the Century Cures Act, medical imaging exams and procedure reports are released immediately into your electronic medical record. You may view this report before your referring provider. If you have questions, please contact your health care provider. INDICATION: Fall TECHNIQUE: Head CT without contrast. COMPARISON: None. FINDINGS: Periventricular areas of low attenuation, likely due to chronic small vessel ischemic changes. Generalized volume loss. Atherosclerosis. No intracranial hemorrhage. No discrete mass or mass effect. There is no midline shift. The basilar cisterns are patent. No hydrocephalus. The soto-white matter interface is otherwise preserved. No acute osseous abnormality. No extracalvarial soft tissue abnormality. The mastoid air cells are clear. Partial opacification of the right maxillary sinus with more focal nodular higher attenuation focus, potentially inspissated concretions, however other differential considerations include focal lesion for example inverted papilloma. The visualized portions of the orbits and globes are unremarkable. IMPRESSION: No acute intracranial process per unenhanced head CT. Partial opacification of the right maxillary sinus with more focal nodular higher attenuation focus, potentially inspissated concretions, however other differential considerations include focal lesion for example inverted papilloma. Recommend nonemergent ENT consultation. Please note that all CT scans at this facility use dose modulation, iterative reconstruction, and/or weight-based dosing when appropriate to reduce radiation dose to as low as reasonably achievable. Dictated by Loki Millard MD @ 09/21/2023 2:31:28 PM (Electronically Signed)
[2023-09-21 12:42] LABS: Appearance Urine Clear (Clear); Bilirubin Urine Negative (Negative); Blood Urine Negative (Negative); Color Urine Yellow (Yellow); Glucose Urine Negative (Negative); Ketones Urine Negative (Negative); Leukocyte Esterase Urine Negative (Negative); Nitrite Urine Negative (Negative); Protein Urine Negative (Negative); Urobilinogen Urine 0.2 (0.2-1.0)
[2023-09-21 12:53] LABS: RBC Urine 0-2 (0-2); WBC Urine 0-2 (0-5)
[2023-09-21 13:03] LABS: Basophils Percent Auto 0.3 % (0.0-3.0); Eosinophils Percent Auto 4.3 % (0.0-7.0); Hematocrit 27.4 % (37.0-53.0); Immature Granulocytes Pct Auto 0.5 %; Lymphocytes Percent Auto 8.8 % (20-44); Mean Corpuscular HGB Conc 29 gm/dL (32-36); Mean Corpuscular Hemoglobin 28 pg (26-34); Mean Corpuscular Volume 97 fL (80-100); Monocytes Percent Auto 7.5 % (0.0-11.0); Neutrophils Percent Auto 78.6 % (42.0-72.0); Platelet Count* 172 K/uL (140-440); RDW Coefficient of Variation % 14.3 % (11.5-15.5); Red Blood Count 2.82 m/uL (4.30-5.90); White Blood Count* 15.05 K/uL (4.50-11.00)
[2023-09-21 13:17] LABS: Chloride* 90 mmol/L (96-114)
[2023-09-21 13:18] LABS: Potassium* 4.5 mmol/L (3.6-5.1); Sodium* 130 mmol/L (135-149)
[2023-09-21 13:19] LABS: Hemoglobin* 7.9 gm/dL (13.5-17.5); Slide Review Reflex Yes
[2023-09-21 13:20] LABS: Anion Gap 4 mEq/L (7-15); Bilirubin Total* 0.5 mg/dL (0.1-1.5); Carbon Dioxide* 36 mmol/L (20-32); Creatinine* 1.3 mg/dL (0.5-1.5); Estimated Glomerular Filt Rate 55 ml/min; Total Protein* 5.9 g/dL (6.0-8.3)
[2023-09-21 13:21] LABS: Alanine Aminotransferase* 11 U/L (4-50); Alkaline Phosphatase* 62 U/L (40-150); Aspartate Amino Transferase* 12 U/L (12-35); Blood Urea Nitrogen* 22 mg/dL (7-30); Calcium* 9.3 mg/dL (8.4-10.6); Glucose* 113 mg/dL (60-115); Magnesium* 2.1 mg/dL (1.5-2.6)
--- NOTE | 2023-09-21 13:24 | ED.NURSE ---
Patient and daughter refuse Covid/Flu swab, that is not what he has.
[2023-09-21 13:36] LABS: NT Pro B Type NatriureticPept* 2440 pg/mL; Troponin I* < 0.01 ng/mL (0.01-0.04)
--- NOTE | 2023-09-21 14:00 | ED.NURSE ---
Assisted pt to use commode for BM. BM was black in color and soft. Dr. Johnston verbally notified @ [phone].
--- NOTE | 2023-09-21 14:09 | RESP.RT ---
Pt's daughter refused Neb therapy for Pt. Stated he has taken his nebs at home. BBS decreased, no wheezing. Asked pt to cough, has a fair dry CREW PERSON cough. Hgb noted, Oximetry may be inaccurate on this patient
--- NOTE | 2023-09-21 14:42 | CRLHL7_ITS ---
For Patients: As a result of the Century Cures Act, medical imaging exams and procedure reports are released immediately into your electronic medical record. You may view this report before your referring provider. If you have questions, please contact your health care provider. Indication: Trauma Technique: CT examination of the thoracic spine was performed. Imaging was acquired in the axial plane. Contrast was not administered. Sagittal and coronal reformatted imaging was performed. Please note that all CT scans at this facility use dose modulation, iterative reconstruction, and/or weight-based dosing when appropriate to reduce radiation dose to as low as reasonably achievable. Comparison: None prior to today. Findings: The osseous structures are demineralized. There are degenerative changes. There is no fracture in the recent T10-T12 as questioned clinically. There is wedge compression deformity of T7 with near-complete loss of height. There is no directly visible osseous discontinuity or evidence of paravertebral hematoma. Therefore I favor that this is chronic. There is also moderate loss of height of the superior endplate of T8 without directly visible discontinuity or paravertebral hematoma. Therefore I favor that this is chronic. Acute fracture in these areas is not entirely excluded. Correlate with point tenderness in this area. If definitive imaging were required clinically, an MRI would be the study of choice. There is no fracture associated canal stenosis on this exam Impression: 1. Demineralization, degenerative changes and kyphosis. 2. Near complete loss of height of T7 vertebral body. Imaging features are indeterminate but favor chronic. 3. Moderate loss of height of the superior endplate of T8. Imaging features are indeterminate but favor chronic. 4. There is no fracture associated canal stenosis by CT. If definitive imaging is required clinically, consider MRI. 5. Severe emphysema incidentally noted. Atherosclerotic vascular calcifications identified. Please note that all CT scans at this facility use dose modulation, iterative reconstruction, and/or weight-based dosing when appropriate to reduce radiation dose to as low as reasonably achievable. Dictated by Paulie Mckeon MD @ 09/21/2023 3:17:24 PM (Electronically Signed)
[2023-09-21 17:04] VITALS: BP 111/62; PULSE 87; RESP 18; TEMP 36.2; O2SAT 98
[2023-09-21 17:21] VITALS: BP 116/54; PULSE 85; RESP 18; TEMP 36.3
[2023-09-21 17:22] VITALS: BP 114/50; PULSE 89; RESP 18; TEMP 36.6; O2SAT 95
[2023-09-21 17:25] LABS: Slide Review Acceptable Review (Acceptable)
--- NOTE | 2023-09-21 18:46 | PC.SOCIAL ---
Social work: At MD request, brought information on hospice care and agencies and attempted to meet with Pt and dtr to share information and answer questions. Daughter was tearful and was not interested in meeting today. Dtr states social service assistant can call her tomorrow and accepted the written information provided. radiation control worker to follow up as needed.
== END 2023-09-21 18:55 | disposition home or self-care (01) ==
PROVIDERS: Emergency Provider Student in an Organized Health Care Education/Training Program; PCP Family Medicine
DX: K63.89 Other specified diseases of intestine (principal); D64.9 Anemia, unspecified
CPT/HCPCS: 36415; 36430; 70450; 71045; 72125; 72128; 74177; 80053; 81001; 83735; 83880; 84484; 85025; 86850; 86900; 86901; 86922; 87631; 93005; 99283; 99284; 99285; P9016; Q9967

== ENCOUNTER 2023-09-23 15:04 | Emergency (ER) | payer MEDICARE, SELFPAY ==
[2023-09-23 15:16] VITALS: PULSE 72; RESP 16; O2SAT 89
--- NOTE | 2023-09-23 15:28 | ED_ITS ---
HPI - General Adult General Time Seen by Provider: 15:28 Date Seen: 09/23/23 Chief complaint: Back Injury/Pain Stated complaint: Back pain Time Seen by Provider: 09/23/23 15:28 Source: patient and RN notes reviewed Mode of arrival: ambulatory Limitations: no limitations History of Present Illness HPI narrative: This 83-year-old gentleman is coming in with back pain, he is here with his daughter whom he lives with. They live in [facility], again, he resides with his daughter. She is here for pain management. Had fallen, had back pain, was in the ER earlier this week and was evaluated with a CT. 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 There is no evidence of any spinal fracture on CT imaging. He did try some Tylenol earlier, his daughter states Tylenol will not be sufficient. I did review with her that I do recommend Tylenol baseline for pain management and then we will figure out what else he will need. He did not sleep well last night. They did meet with hospice today but he cannot be listed until they are sure that this is the avenue they are going to go. They would like to get a 2nd opinion as far as his possibility of having colorectal surgery. 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 He has tolerated some pain pills with dental extraction before, unsure of what he took but did not have problems with it. I did review with patient and his daughter with his severe COPD, narcotics can be problematic for some as they can diminish respiratory drive and have complications of respiratory issues. She will need to watch for that. She is wanting pain management only today. Patient is still having pain in his midback area. He has a sebaceous cyst or lipoma on the posterior chest wall, his daughter states it has been removed before. Certainly seems to be a fleshy area that is more likely a lipoma but I would still consider sebaceous cyst. Does not appear to be infected at this time. Related Data Home Medications Medication Instructions Recorded Confirmed arformoterol 15 mcg/2 mL solution inhalation 06/15/23 09/13/23 for nebulization budesonide 0.25 mg/2 mL suspension 0.25 mg inhalation 06/15/23 09/13/23 for nebulization calcium carbonate 600 mg calcium 750 mg PO TID 06/15/23 09/13/23 (1,500 mg) tablet carboxymethylcellulose sodium ophthalmic (eye) 06/15/23 09/13/23 [Refresh Tears] dorzolamide 2 %-timolol 0.5 % (PF) 1 drp ophthalmic (eye) QAM 06/15/23 09/13/23 eye drops formoterol fumarate 20 mcg/2 mL inhalation 06/15/23 09/13/23 solution for nebulization ipratropium 0.5 mg-albuterol 3 mg ml inhalation 06/15/23 09/13/23 (2.5 mg base)/3 mL nebulization soln latanoprost 0.005 % eye drops 1 drp ophthalmic (eye) QPM 06/15/23 09/13/23 guaifenesin 1,200 mg tablet, 1,200 mg PO BID 06/16/23 09/13/23 extended release 12 hr (Mucinex) vit C 226 mg-vit E 90 mg-copper cap PO BID 06/16/23 09/13/23 0.8 mg-zinc oxide-lutein 5 mg capsule (PreserVision Lutein) potassium chloride 20 mEq 20 meq PO DAILY 09/13/23 09/13/23 tablet,extended release Previous Rx's Medication Instructions Recorded cholecalciferol (vitamin D3) 75 150 mcg (2 x 75 mcg (3,000 unit)) 07/19/23 mcg (3,000 unit) tablet PO QDAY #180 tabs iron,carbonyl 65 mg-vitamin C 125 1 tab PO BID #120 tabs 07/19/23 mg tablet,delayed release (Vitron-C) bisacodyl 10 mg rectal suppository 10 mg MN QDAY PRN constipation #12 08/16/23 (Dulcolax (bisacodyl)) ea furosemide 20 mg tablet 20 mg PO QAM #90 tabs 08/16/23 tamsulosin 0.4 mg capsule 0.4 mg PO DAILY #90 caps 08/16/23 metoprolol succinate 25 mg 25 mg PO QDAY #90 tabs 08/17/23 tablet,extended release 24 hr ondansetron 4 mg disintegrating 4 mg PO Q8H PRN nausea and 09/23/23 tablet vomiting #10 tabs ondansetron 4 mg disintegrating 4 mg PO Q8H PRN nausea and 09/23/23 tablet vomiting #10 tabs oxycodone 5 mg tablet 2.5 mg (2 x 5 mg) PO Q4-6H PRN 09/23/23 pain #20 tabs oxycodone 5 mg tablet 2.5 mg (1/2 x 5 mg) PO Q4-6H PRN 09/23/23 pain #20 tabs sennosides 8.6 mg capsule (senna) 8.6 mg PO BID PRN constipation #30 09/23/23 caps sennosides 8.6 mg capsule (senna) 8.6 mg PO BID PRN constipation #60 09/23/23 caps Allergies Allergy/AdvReac Type Severity Reaction Status Date / Time finasteride Allergy Severe Confusion Verified 09/23/23 15:18 Review of Systems Narrative: As per HPI. PFSH PFS Medical History BPH associated with nocturia ?N40.1 - Benign prostatic hyperplasia with lower urinary tract symptoms (ICD- 10) ?R35.1 - Nocturia (ICD-10) Anemia ?D64.9 - Anemia, unspecified (ICD-10) Hypokalemia ?E87.6 - Hypokalemia (ICD-10) Vitamin D deficiency ?E55.9 - Vitamin D deficiency, unspecified (ICD-10) HTN (hypertension) ?I10 - Essential (primary) hypertension (ICD-10) COPD (chronic obstructive pulmonary disease) with emphysema ?J43.9 - Emphysema, unspecified (ICD-10) Lower extremity edema ?R60.0 - Localized edema (ICD-10) CHF (congestive heart failure) ?I50.9 - Heart failure, unspecified (ICD-10) Social History Little interest or pleasure in doing things: not at all Feeling down, depressed, or hopeless: not at all Exam Const: Vital Signs, click to edit/add: Vital Signs - 24 hr 09/23/23 15:16 Pulse Rate [Right Pulse Oximeter] 72 Respiratory Rate 16 Pulse Oximetry 89 Oxygen Delivery Me thod Nasal Cannula Oxygen Flow Rate 2 Patient is an 83-year-old gentleman that is in motorized scooter, is alert, wearing oxygen. He is pleasant. Does not seem to be any significant distress. Lung sounds are distant but he is not tachypneic, no wheezing or crackles. CV regular rate and rhythm, heart sounds distant but do not hear any murmur. No midline tenderness over his back. He has a fleshy feeling tumor in the subcutaneous tissue on the right side of his midthoracic area, no evidence of infection, this is not reproduce his tenderness. Do believe this likely represents a lipoma but a very large non infected sebaceous cyst is a possibility as well. I feel no crepitus of the chest wall. Documenting provider has reviewed patient's vital signs: yes Course Course ED Course: We will give patient 2.5 mg of oral oxycodone here. I will also premedicate with Zofran to prevent nausea. I have spent some time discussing different pain management options with his daughter. We have not ascertained that he needs chronic pain management like fentanyl at this point. Certainly I would not withhold chronic narcotics on him given his situation. If he continues to have ongoing or increasing pain, do think they need to reconsider imaging but at this time will forego this and treat his pain as requested by his daughter. I went over risks benefits and side effects of narcotics including but not limited to increased risk of falls, confusion, constipation. We specifically did review respiratory complications with his COPD and narcotic use. Vital Signs Vital signs: Initial Vital Signs Pulse Rate 72 09/23/23 15:16 Pulse Rhythm Regular 09/23/23 15:16 Pulse Strength 3+ Normal 09/23/23 15:16 Respiratory Rate 16 09/23/23 15:16 Pulse Oximetry 89 09/23/23 15:16 Oxygen Delivery Method Nasal Cannula 09/23/23 15:16 Oxygen Flow Rate 2 09/23/23 15:16 Vital Signs Pulse Rate 72 09/23/23 15:16 Respiratory Rate 16 09/23/23 15:16 Pulse Oximetry 89 09/23/23 15:16 Oxygen Delivery Method Nasal Cannula 09/23/23 15:16 Oxygen Flow Rate 2 09/23/23 15:16 Pulse Rate 72 09/23/23 15:16 Respiratory Rate 16 09/23/23 15:16 Pulse Oximetry 89 09/23/23 15:16 Oxygen Delivery Method Nasal Cannula 09/23/23 15:16 Oxygen Flow Rate 2 09/23/23 15:16 Discharge Plan Discharge Clinical Impression: Back pain Patient Disposition: Home, Self-Care Condition: Stable Instructions: Back Pain (ED) Additional Instructions: Take Tylenol 1000 mg 3 times a day baseline for pain. Can use oxycodone per prescription. Oxycodone certainly can be constipating, recommend MiraLax 17 g daily and can use additional senna 1-2 pills up to a once to twice daily as needed to control constipation. Have also sent in a prescription for some Zofran to be used if the oxycodone makes him feel sick to his stomach. Do need to follow up in clinic if you need more pain pills. Continue to pursue the 2nd opinion as far as surgical intervention for the colon mass. Certainly hospice can be entered if it is the route you choose to go. Activity Level: Activity as Tolerated Prescriptions: New oxycodone 5 mg tablet 2.5 mg PO Q4-6H PRN (Reason: pain) Qty: 20 0RF ondansetron 4 mg tablet,disintegrating 4 mg PO Q8H PRN (Reason: nausea and vomiting) Qty: 10 0RF senna 8.6 mg capsule 8.6 mg PO BID PRN (Reason: constipation) Qty: 30 0RF oxycodone 5 mg tablet 2.5 mg PO Q4-6H PRN (Reason: pain) Qty: 20 0RF ondansetron 4 mg tablet,disintegrating 4 mg PO Q8H PRN (Reason: nausea and vomiting) Qty: 10 0RF senna 8.6 mg capsule 8.6 mg PO BID PRN (Reason: constipation) Qty: 60 0RF No Action potassium chloride 20 mEq tablet extended release 20 meq PO DAILY budesonide 0.25 mg/2 mL suspension for nebulization 0.25 mg inhalation arformoterol 15 mcg/2 mL solution for nebulization inhalation calcium carbonate 600 mg calcium (1,500 mg) tablet 750 mg PO TID latanoprost 0.005 % drops 1 drp ophthalmic (eye) QPM dorzolamide-timolol (PF) 2-0.5 % drops 1 drp ophthalmic (eye) QAM carboxymethylcellulose sodium [Refresh Tears] ophthalmic (eye) ipratropium-albuterol 0.5 mg-3 mg(2.5 mg base)/3 mL solution for nebulization inhalation Patient Comments: [NO ORIGINAL SIG] formoterol fumarate 20 mcg/2 mL solution for nebulization inhalation cholecalciferol (vitamin D3) 75 mcg (3,000 unit) tablet 150 mcg PO QDAY Qty: 180 3RF Vitron-C 65 mg iron- 125 mg tablet,delayed release (DR/EC) 1 tab PO BID Qty: 120 1RF bisacodyl [Dulcolax (bisacodyl)] 10 mg suppository 10 mg MN QDAY PRN (Reason: constipation) Qty: 12 1RF tamsulosin 0.4 mg capsule 0.4 mg PO DAILY Qty: 90 3RF furosemide 20 mg tablet 20 mg PO QAM Qty: 90 0RF PreserVision Lutein 226-90-0.8-5 mg capsule PO BID Mucinex 1,200 mg tablet extended release 12hr 1,200 mg PO BID metoprolol succinate 25 mg tablet extended release 24 hr 25 mg PO QDAY Qty: 90 3RF Follow Up/Referrals: Ebenezer Boykin MD [Primary Care Provider] - Stand Alone Forms: [facility] Info Instructions
[2023-09-23] MEDS: OXYCODONE 5 MG TABLET 2.5 MG PO (16:18)
[2023-09-23] MEDS: ONDANSETRON ODT 4 MG TAB PO (16:18)
--- NOTE | 2023-09-23 17:27 | PC.SOCIAL ---
Social work: As follow up and as requested by daughter, called her today to offer more information on hospice option. Dtr states she has already reached out to a hospice agency. She states they are not interested in that option right now, because he has an appointment at [facility] to explore other options. She was appreciative of the information provided and had no further questions for social work.
== END 2023-09-23 16:05 | disposition home or self-care (01) ==
LOC: ED 15:53
PROVIDERS: Emergency Provider Family Medicine; PCP Family Medicine
DX: M54.9 Dorsalgia, unspecified (principal)
CPT/HCPCS: 99282; 99283; 99284; A9270